=== PATIENT | female | born 1970 | race Caucasian/White ===

== ENCOUNTER 2018-03-16 17:36 | Inpatient (IN) ==
--- NOTE | 2018-03-16 18:58 | Emergency Department Note ---
START Narrative - START START: I have reviewed nurse's notes and vital signs. 47-year-old female with self reported alcohol abuse presents with suicidal ideation. She mentioned she has been a drinker since she was 16yo. She does mention she goes through withdrawal symptoms. Her last drink was approximately 12 hours ago. She mentions she drinks a bottle of vodka every day. She mentions she has been diagnosed with anxiety and/or depression in the past but has not seen anyone or taken any medications lately. She is accompanied by her parents. Her father mentions that patient recently had a DUI conviction last fall, and has recently missed court appearances and has a warrant out for her. Otherwise patient mentions several life stressors but declines to provide specifics. This is a start note. Patient was initially seen in fast track area per request of nursing. I will put a medical clearance evaluation and patient will likely be placed in a medical bed where her care will be transferred over to the day shift attending, Dr. Pineda, with whom I discussed patient. Please see her documentation for further details.
[2018-03-16 19:17] LABS: Bilirubin,Urine Negative (Negative); Blood,Urine Small (Negative); Clarity,Urine Clear (Clear); Color,Urine Yellow (Yellow); Glucose,Urine (UA) Normal (Normal); Ketones,Urine Trace mg/dL (Negative); Leukocyte Esterase,Urine Negative (Negative); Nitrite,Urine Negative (Negative); PH,Urine 6.5 pH Units (5.0-8.0); Protein,Urine 30 mg/dL (Neg-Trace); Specific Gravity,Urine 1.013 (1.010-1.025); Urobilinogen,Urine Normal (Normal)
[2018-03-16 19:24] LABS: Bacteria,Urine None Seen per hpf (None-Few); Hyaline Casts,Urine None Seen per lpf (None-Few); RBC,Urine 0-3 per hpf (0-3); Squamous Epithelial Cell,Urine Moderate per lpf (None-Few); WBC,Urine 0-3 per hpf (0-3)
[2018-03-16 19:26] LABS: Amphetamine Screen,Urine Negative ng/mL (Cutoff=1000); Barbiturate Screen,Urine Negative ng/mL (Cutoff=200); Benzodiazepines Screen,Urine Negative ng/mL (Cutoff=200); Cannabinoid Screen,Urine Negative ng/mL (Cutoff = 50); Cocaine Screen,Urine Negative ng/mL (Cutoff= 300); Opiate Screen,Urine Negative ng/mL (Cutoff=300); Phencyclidine Screen,Urine Negative ng/mL (Cutoff=25)
[2018-03-16 19:28] LABS: Basophils % 0.8 %; Eosinophils % 0.6 %; Hematocrit 44.5 % (35.3-44.9); Hemoglobin 14.7 g/dL (11.5-15.4); Immature Granulocytes % 0.4 % (0-4); Lymphocytes # 1.5 K/mcL (0.6-4.6); Lymphocytes % 29.2 %; Mean Corpuscular Hemoglobin 27.8 pg (28.0-33.3); Mean Corpuscular Volume 84.1 fL (83.0-100.0); Mean Platelet Volume 9.3 fL (9.4-12.4); Monocytes # 0.4 K/mcL (0.0-1.3); Monocytes % 7.1 %; Neutrophils # 3.2 K/mcL (1.6-8.9); Platelet Count 211 K/mcL (140-400); Red Blood Count 5.29 M/mcL (3.82-4.97); Red Cell Distribution Width 15.7 % (11.5-14.5); Segmented Neutrophils % 61.9 %
[2018-03-16] MEDS ORDERED: *HR* LORazepam 1 MG TABLET PO ONE (19:33)
[2018-03-16 19:39] LABS: Acetaminophen < 10 mcg/mL (10-20); BUN/Creatinine Ratio 8 (6-26); Blood Urea Nitrogen 5 mg/dL (6-20); Calcium 9.1 mg/dL (8.6-10.3); Carbon Dioxide 21 mEq/L (23-29); Chloride 101 mEq/L (98-107); Ethanol 430 mg/dL (Less than 10); Glucose 102 mg/dL (70-105); Osmolality,Calculated 287 (280-300); Potassium 3.7 mEq/L (3.5-5.1); Salicylate < 2.5 mg/dL (15.0-30.0); Sodium 140 mEq/L (136-145); eGFR For African Americans > 60 (> 60); eGFR For Non-African Americans > 60 (> 60)
--- NOTE | 2018-03-16 20:53 | Emergency Department Note ---
Disposition Clinical Impression: Suicidal ideation Disposition: Still a Patient Condition: Good Referrals: NONE,PCP [Primary Care Provider] - Forms: ED Satisfaction Letter Time of Disposition: 21:14 Psych HPI - General Chief Complaint: ED Psychiatric Symptoms Stated Complaint: SI Time Seen by Provider: 03/16/18 18:49 Source: patient, family Nursing Notes Reviewed: Yes Vital Signs Reviewed: Yes - History of Present Illness HPI Narrative: Patient sitting suicidal ideation. No plan. Also requesting withdrawal from alcohol. States she drinks 700 mL of vodka daily. - Related Data Home Medications Medication Instructions Recorded Confirmed LORazepam [Ativan] 1 mg PO DAILY 08/03/17 08/03/17 Zolpidem [Ambien] 10 mg PO DAILY 08/03/17 08/03/17 Previous Rx's Medication Instructions Recorded Azithromycin [Zithromax] 0 tab PO DAILY #6 tablet 08/03/17 Benzonatate [Tessalon] 200 mg PO TID #20 capsule 08/03/17 Allergies Allergy/AdvReac Type Severity Reaction Status Date / Time No Known Allergies Allergy Verified 08/03/17 10:40 All systems ED: reviewed and negative except as stated. Constitutional: Denies: fever, chills Cardiovascular: Denies: chest pain Respiratory: Denies: cough, dyspnea Gastrointestinal: Denies: abdominal pain, nausea, vomiting, diarrhea Psychiatric: Reports: anxiety, suicidal thoughts. Denies: auditory hallucinations, visual hallucinations Past Medical History - Past Medical History Attestation: Yes The following information was validated with the patient. 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 Absent: scleral icterus - ENT ENT exam: normal exam, normal oropharynx, mucous membranes moist - Neck Neck exam: Present: normal inspection, full ROM, trachea midline - Chest Chest inspection: Present: normal inspection. Absent: symmetric chest wall rise - Respiratory Respiratory exam: Present: normal lung sounds bilaterally. Absent: respiratory distress, accessory muscle use - Cardiovascular Cardiovascular exam: Present: regular rate, normal rhythm, normal heart sounds - Abdominal Exam Abdominal exam: Present: soft, Non-Tender. Absent: organomegaly - Extremities Exam Extremities exam: Present: normal inspection, full ROM, normal capillary refill. Absent: tenderness, pedal edema - Back Exam Back exam: Present: normal inspection, full ROM. Absent: tenderness - Neurological Exam Neurological exam: Present: alert, oriented X3 - Psychiatric Psychiatric exam: Present: normal affect, normal mood - Skin Skin exam: Present: warm, dry, intact, normal color Course Course Narrative: Female patient with a history of alcoholism but drinks about 750 mL of vodka daily presenting to the emergency department with suicidal ideations. She states she does not have a plan. She states she does not feel suicidal while sitting here in the hospital. She is not homicidal. She denies any auditory or visual hallucinations. She is requesting detox from alcohol. She has no shortness of breath or chest pain. She denies any abdominal pain. She does report some shaking. She has detoxed previously with no history of seizures. We will get basic lab workup on admit patient for alcohol detox. She states she does have a history of depression and has taken medication for this previously however is not on any at this time. We we will do a basic lab workup. We will pink slip the patient for her suicidal ideation a negative Ia evaluation. Vital Signs Temperature 98.4 F 03/16/18 18:35 Pulse Rate 120 03/16/18 18:35 Respiratory Rate 18 03/16/18 18:35 Blood Pressure 162/87 03/16/18 18:35 O2 Sat by Pulse Oximetry 97 03/16/18 18:35 Temperature 98.4 F 03/16/18 18:35 Pulse Rate 120 03/16/18 18:35 Respiratory Rate 18 03/16/18 18:35 Blood Pressure 162/87 03/16/18 18:35 O2 Sat by Pulse Oximetry 97 03/16/18 18:35 Oxygen Delivery Oxygen Delivery Room Air Psych - Lab Data Result diagrams: 03/16/18 19:13 03/16/18 19:13 Lab Results 03/16/18 03/16/18 03/16/18 Range/Units 19:10 19:10 19:10 WBC (4.3-11.1) K/mcL RBC (3.82-4.97) M/mcL Hgb (11.5-15.4) g/dL Hct (35.3-44.9) % MCV (83.0-100.0) fL MCH (28.0-33.3) pg MCHC (31.6-35.5) g/dL RDW (11.5-14.5) % Plt Count (140-400) K/mcL MPV (9.4-12.4) fL Immature Gran % (0-4) % Seg Neutrophils % % Lymphocytes % % Monocytes % % Eosinophils % % Basophils % % Neutrophils # (1.6-8.9) K/mcL Lymphocytes # (0.6-4.6) K/mcL Monocytes # (0.0-1.3) K/mcL Eosinophils # (0.0-0.6) K/mcL Basophils # (0.0-0.2) K/mcL Sodium (136-145) mEq/L Potassium (3.5-5.1) mEq/L Chloride (98-107) mEq/L Carbon Dioxide (23-29) mEq/L BUN (6-20) mg/dL Creatinine (0.60-1.20) mg/dL Est GFR ( Amer) (> 60) Est GFR (Non-Af Amer) (> 60) BUN/Creatinine Ratio (6-26) Glucose (70-105) mg/dL Calculated Osmolality (280-300) Calcium (8.6-10.3) mg/dL Urine Color Yellow (Yellow) Urine Clarity Clear (Clear) Urine pH 6.5 (5.0-8.0) pH Units Ur Specific [place] 1.013 (1.010-1.025) Urine Protein 30 H (Neg-Trace) mg/dL Urine Glucose (UA) Normal (Normal) mg/dL Urine Ketones Trace H (Negative) mg/dL Urine Blood Small H (Negative) Urine Nitrite Negative (Negative) Urine Bilirubin Negative (Negative) Urine Urobilinogen Normal (Normal) mg/dL Ur Leukocyte Esterase Negative (Negative) Urine Microscopic RBC 0-3 (0-3) per hpf Urine Microscopic WBC 0-3 (0-3) per hpf Ur Squamous Epith Cells Moderate H (None-Few) per lpf Urine Bacteria None Seen (None-Few) per hpf Hyaline Casts None Seen (None-Few) per lpf Urine Test Negative (Negative) Salicylates (15.0-30.0) mg/dL Urine Opiates Screen Negative (Clksrf=344) ng/mL Acetaminophen (10-20) mcg/mL Ur Barbiturates Screen Negative (Imizgp=002) ng/mL Ur Phencyclidine Scrn Negative (Cutoff=25) ng/mL Ur Amphetamines Screen Negative (Qltsxe=6369) ng/mL U Benzodiazepines Scrn Negative (Zhqfbd=452) ng/mL Urine Cocaine Screen Negative (Cutoff= 300) ng/mL U Marijuana (THC) Screen Negative (Cutoff = 50) ng/mL Ethyl Alcohol (Less than 10) mg/dL 03/16/18 03/16/18 Range/Units 19:13 19:13 WBC 5.2 (4.3-11.1) K/mcL RBC 5.29 H (3.82-4.97) M/mcL Hgb 14.7 (11.5-15.4) g/dL Hct 44.5 (35.3-44.9) % MCV 84.1 (83.0-100.0) fL MCH 27.8 L (28.0-33.3) pg MCHC 33.0 (31.6-35.5) g/dL RDW 15.7 H (11.5-14.5) % Plt Count 211 (140-400) K/mcL MPV 9.3 L (9.4-12.4) fL Immature Gran % 0.4 (0-4) % Seg Neutrophils % 61.9 % Lymphocytes % 29.2 % Monocytes % 7.1 % Eosinophils % 0.6 % Basophils % 0.8 % Neutrophils # 3.2 (1.6-8.9) K/mcL Lymphocytes # 1.5 (0.6-4.6) K/mcL Monocytes # 0.4 (0.0-1.3) K/mcL Eosinophils # 0.0 (0.0-0.6) K/mcL Basophils # 0.0 (0.0-0.2) K/mcL Sodium 140 (136-145) mEq/L Potassium 3.7 (3.5-5.1) mEq/L Chloride 101 (98-107) mEq/L Carbon Dioxide 21 L (23-29) mEq/L BUN 5 L (6-20) mg/dL Creatinine 0.61 (0.60-1.20) mg/dL Est GFR ( Amer) > 60 (> 60) Est GFR (Non-Af Amer) > 60 (> 60) BUN/Creatinine Ratio 8 (6-26) Glucose 102 (70-105) mg/dL Calculated Osmolality 287 (280-300) Calcium 9.1 (8.6-10.3) mg/dL Urine Color (Yellow) Urine Clarity (Clear) Urine pH (5.0-8.0) pH Units Ur Specific [place] (1.010-1.025) Urine Protein (Neg-Trace) mg/dL Urine Glucose (UA) (Normal) mg/dL Urine Ketones (Negative) mg/dL Urine Blood (Negative) Urine Nitrite (Negative) Urine Bilirubin (Negative) Urine Urobilinogen (Normal) mg/dL Ur Leukocyte Esterase (Negative) Urine Microscopic RBC (0-3) per hpf Urine Microscopic WBC (0-3) per hpf Ur Squamous Epith Cells (None-Few) per lpf Urine Bacteria (None-Few) per hpf Hyaline Casts (None-Few) per lpf Urine Test (Negative) Salicylates < 2.5 L (15.0-30.0) mg/dL Urine Opiates Screen (Zlreha=777) ng/mL Acetaminophen < 10 L (10-20) mcg/mL Ur Barbiturates Screen (Phvgrv=407) ng/mL Ur Phencyclidine Scrn (Cutoff=25) ng/mL Ur Amphetamines Screen (Eyfapo=4812) ng/mL U Benzodiazepines Scrn (Yixubg=004) ng/mL Urine Cocaine Screen (Cutoff= 300) ng/mL U Marijuana (THC) Screen (Cutoff = 50) ng/mL Ethyl Alcohol 430 H (Less than 10) mg/dL Psychiatric Medical Clearance - Medical Clearance Checklist Medical History: Suicidal ideation (Acute) Bronchitis (Inactive) No Social History Section defined Current Vitals: Last Vital Signs Temp 98.4 F 03/16/18 18:35 Pulse 120 03/16/18 18:35 Resp 18 03/16/18 18:35 BP 162/87 03/16/18 18:35 Pulse Ox 97 03/16/18 18:35 Psychiatric Lab Panel: Drug Levels and Toxicity 03/16/18 03/16/18 19:10 19:13 Urine Opiates Screen Negative Acetaminophen < 10 L Ur Barbiturates Screen Negative Ur Phencyclidine Scrn Negative Ur Amphetamines Screen Negative U Benzodiazepines Scrn Negative Urine Cocaine Screen Negative U Marijuana (THC) Screen Negative Ethyl Alcohol 430 H Abnormal Labs: Abnormal lab results RBC 5.29 M/mcL (3.82-4.97) H 03/16/18 19:13 MCH 27.8 pg (28.0-33.3) L 03/16/18 19:13 RDW 15.7 % (11.5-14.5) H 03/16/18 19:13 MPV 9.3 fL (9.4-12.4) L 03/16/18 19:13 Carbon Dioxide 21 mEq/L (23-29) L 03/16/18 19:13 BUN 5 mg/dL (6-20) L 03/16/18 19:13 Urine Protein 30 mg/dL (Neg-Trace) H 03/16/18 19:10 Urine Ketones Trace mg/dL (Negative) H 03/16/18 19:10 Urine Blood Small (Negative) H 03/16/18 19:10 Ur Squamous Epith Cells Moderate per lpf (None-Few) H 03/16/18 19:10 Salicylates < 2.5 mg/dL (15.0-30.0) L 03/16/18 19:13 Acetaminophen < 10 mcg/mL (10-20) L 03/16/18 19:13 Ethyl Alcohol 430 mg/dL (Less than 10) H 03/16/18 19:13 S.B.A.R. - S.B.A.R. Background: Presenting Complaint (Suicidal ideation, patient is pink slipped. Pending Ia evaluation.) Assessment: Exam Concerns (Alcohol withdrawal, has been given by mouth Ativan.)
[2018-03-16] MEDS ORDERED: *HR* LORazepam 2 MG/ML VIAL IVP ONE (21:37)
--- NOTE | 2018-03-16 21:37 | Emergency Department Note ---
Disposition Clinical Impression: Suicidal ideation Disposition: Still a Patient Condition: Good Referrals: NONE,PCP [Primary Care Provider] - Forms: ED Satisfaction Letter General Adult HPI - General Chief complaint: ED Psychiatric Symptoms Stated complaint: SI Time Seen by Provider: 03/16/18 18:49 Source: patient, family Limitations: no limitations - History of Present Illness Pain Scale: 0 - Related Data Home Medications Medication Instructions Recorded Confirmed LORazepam [Ativan] 1 mg PO DAILY 08/03/17 08/03/17 Zolpidem [Ambien] 10 mg PO DAILY 08/03/17 08/03/17 Previous Rx's Medication Instructions Recorded Azithromycin [Zithromax] 0 tab PO DAILY #6 tablet 08/03/17 Benzonatate [Tessalon] 200 mg PO TID #20 capsule 08/03/17 Allergies Allergy/AdvReac Type Severity Reaction Status Date / Time No Known Allergies Allergy Verified 08/03/17 10:40 Constitutional: Denies: fever, chills Cardiovascular: Denies: chest pain Respiratory: Denies: cough, dyspnea Gastrointestinal: Denies: abdominal pain, nausea, vomiting, diarrhea Psychiatric: Reports: anxiety, suicidal thoughts. 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 - Social History Smoking Status: Never smoker Smokeless Tobacco Status: No Alcohol use: Reports: heavy Drug use: Reports: none Physical Exam - General Limitations: no limitations General appearance: alert, in no apparent distress, anxious Course Vital Signs Temperature 98.4 F 03/16/18 18:35 Pulse Rate 120 03/16/18 18:35 Respiratory Rate 18 03/16/18 18:35 Blood Pressure 162/87 03/16/18 18:35 O2 Sat by Pulse Oximetry 97 03/16/18 18:35 Temperature 98.4 F 03/16/18 18:35 Pulse Rate 120 03/16/18 18:35 Respiratory Rate 18 03/16/18 18:35 Blood Pressure 162/87 03/16/18 18:35 O2 Sat by Pulse Oximetry 97 03/16/18 18:35 Oxygen Delivery Oxygen Delivery Room Air Medical Decision Making - Lab Data Result diagrams: 03/16/18 19:13 03/16/18 19:13 Lab Results 03/16/18 03/16/1803/16/18 Range/Units 19:10 19:10 19:10 WBC (4.3-11.1) K/mcL RBC (3.82-4.97) M/mcL Hgb (11.5-15.4) g/dL Hct (35.3-44.9) % MCV (83.0-100.0) fL MCH (28.0-33.3) pg MCHC (31.6-35.5) g/dL RDW (11.5-14.5) % Plt Count (140-400) K/mcL MPV (9.4-12.4) fL Immature Gran % (0-4) % Seg Neutrophils % % Lymphocytes % % Monocytes % % Eosinophils % % Basophils % % Neutrophils # (1.6-8.9) K/mcL Lymphocytes # (0.6-4.6) K/mcL Monocytes # (0.0-1.3) K/mcL Eosinophils # (0.0-0.6) K/mcL Basophils # (0.0-0.2) K/mcL Sodium (136-145) mEq/L Potassium (3.5-5.1) mEq/L Chloride (98-107) mEq/L Carbon Dioxide (23-29) mEq/L BUN (6-20) mg/dL Creatinine (0.60-1.20) mg/dL Est GFR ( Amer) (> 60) Est GFR (Non-Af Amer) (> 60) BUN/Creatinine Ratio (6-26) Glucose (70-105) mg/dL Calculated Osmolality (280-300) Calcium (8.6-10.3) mg/dL Urine Color Yellow (Yellow) Urine Clarity Clear (Clear) Urine pH 6.5 (5.0-8.0) pH Units Ur Specific [place] 1.013 (1.010-1.025) Urine Protein 30 H (Neg-Trace) mg/dL Urine Glucose (UA) Normal (Normal) mg/dL Urine Ketones Trace H (Negative) mg/dL Urine Blood Small H (Negative) Urine Nitrite Negative (Negative) Urine Bilirubin Negative (Negative) Urine Urobilinogen Normal (Normal) mg/dL Ur Leukocyte Esterase Negative (Negative) Urine Microscopic RBC 0-3 (0-3) per hpf Urine Microscopic WBC 0-3 (0-3) per hpf Ur Squamous Epith Cells Moderate H (None-Few) per lpf Urine Bacteria None Seen (None-Few) per hpf Hyaline Casts None Seen (None-Few) per lpf Urine Test Negative (Negative) Salicylates (15.0-30.0) mg/dL Urine Opiates Screen Negative (Eclsvb=012) ng/mL Acetaminophen (10-20) mcg/mL Ur Barbiturates Screen Negative (Vjgynb=733) ng/mL Ur Phencyclidine Scrn Negative (Cutoff=25) ng/mL Ur Amphetamines Screen Negative (Xdjlwk=0092) ng/mL U Benzodiazepines Scrn Negative (Hqnuxe=899) ng/mL Urine Cocaine Screen Negative (Cutoff= 300) ng/mL U Marijuana (THC) Screen Negative (Cutoff = 50) ng/mL Ethyl Alcohol (Less than 10) mg/dL 03/16/18 03/16/18 Range/Units 19:13 19:13 WBC 5.2 (4.3-11.1) K/mcL RBC 5.29 H (3.82-4.97) M/mcL Hgb 14.7 (11.5-15.4) g/dL Hct 44.5 (35.3-44.9) % MCV 84.1 (83.0-100.0) fL MCH 27.8 L (28.0-33.3) pg MCHC 33.0 (31.6-35.5) g/dL RDW 15.7 H (11.5-14.5) % Plt Count 211 (140-400) K/mcL MPV 9.3 L (9.4-12.4) fL Immature Gran % 0.4 (0-4) % Seg Neutrophils % 61.9 % Lymphocytes % 29.2 % Monocytes % 7.1 % Eosinophils % 0.6 % Basophils % 0.8 % Neutrophils # 3.2 (1.6-8.9) K/mcL Lymphocytes # 1.5 (0.6-4.6) K/mcL Monocytes # 0.4 (0.0-1.3) K/mcL Eosinophils # 0.0 (0.0-0.6) K/mcL Basophils # 0.0 (0.0-0.2) K/mcL Sodium 140 (136-145) mEq/L Potassium 3.7 (3.5-5.1) mEq/L Chloride 101 (98-107) mEq/L Carbon Dioxide 21 L (23-29) mEq/L BUN 5 L (6-20) mg/dL Creatinine 0.61 (0.60-1.20) mg/dL Est GFR ( Amer) > 60 (> 60) Est GFR (Non-Af Amer) > 60 (> 60) BUN/Creatinine Ratio 8 (6-26) Glucose 102 (70-105) mg/dL Calculated Osmolality 287 (280-300) Calcium 9.1 (8.6-10.3) mg/dL Urine Color (Yellow) Urine Clarity (Clear) Urine pH (5.0-8.0) pH Units Ur Specific [place] (1.010-1.025) Urine Protein (Neg-Trace) mg/dL Urine Glucose (UA) (Normal) mg/dL Urine Ketones (Negative) mg/dL Urine Blood (Negative) Urine Nitrite (Negative) Urine Bilirubin (Negative) Urine Urobilinogen (Normal) mg/dL Ur Leukocyte Esterase (Negative) Urine Microscopic RBC (0-3) per hpf Urine Microscopic WBC (0-3) per hpf Ur Squamous Epith Cells (None-Few) per lpf Urine Bacteria (None-Few) per hpf Hyaline Casts (None-Few) per lpf Urine Test (Negative) Salicylates < 2.5 L (15.0-30.0) mg/dL Urine Opiates Screen (Pxdqek=093) ng/mL Acetaminophen < 10 L (10-20) mcg/mL Ur Barbiturates Screen (Ezkbxi=822) ng/mL Ur Phencyclidine Scrn (Cutoff=25) ng/mL Ur Amphetamines Screen (Olhpnh=0988) ng/mL U Benzodiazepines Scrn (Peebsr=844) ng/mL Urine Cocaine Screen (Cutoff= 300) ng/mL U Marijuana (THC) Screen (Cutoff = 50) ng/mL Ethyl Alcohol 430 H (Less than 10) mg/dL Attestation Statement - Attestation Attestation: I examined this patient and my medical decision-making was reviewed with the Resident Physician. I agree with the documented findings, disposition and treatment plan as described except to the extent set forth below. Patient presents to the ED with suicidal thoughts. Patient states she is an alcoholic and drinks 750 and also vodka daily. Thoughts of harming herself with the plan. Patient denies any history of suicide attempts. On examination she is tearful. Awake alert oriented moving all extremities. Abdomen soft lungs clear. Plan. Medical clearance. [place] slip on chart. Patient was suicidal thoughts however unstable for 1A as she starting to go and alcoholic jaw. Patient states she wants to quit drinking. She is given Ativan. Will be admitted to medicine for detox.
[2018-03-16] MEDS ORDERED: Naloxone 0.4 MG/ML INJ IVP PRN (23:08)
[2018-03-16] MEDS ORDERED: Acetaminophen 325 MG TABLET PO PRN (23:08)
[2018-03-16] MEDS ORDERED: *HR* Promethazine 25 MG/ML VIAL IVP PRN (23:11)
[2018-03-16] MEDS ORDERED: *HR* LORazepam 2 MG/ML VIAL IVP PRN ×3 (23:11)
--- NOTE | 2018-03-16 23:17 | Internal Med History&Physical ---
Date of Encounter: 03/16/18 Time of Encounter: 22:30 Internal Medicine - H&P: HPI Chief complaint: Suicidal idea Admitted From: Home Plans for Post Hospital Care: Transfer Psych Facility History of present illness: Ms. Walker is a 47 year old female present to ER for suicidal idea. Past medical history is significant for depression. Patient said she is depressed recently. She has idea of he will herself, without any attempt. Patient denies homicide idea. Patient also compliant of anxious, palpitation, shaking, and diaphoresis. Patient denies chest pain, shortness of breath, abdominal pain, nausea, or vomiting. Patient has no fever. Patient is alcoholic with daily alcohol use, her last drink is this morning. Patient was admitted to medical floor for concern of alcohol withdrawal. Past Med Surg Social Fam HX - Past Medical History Medical history: no medical history Psychiatric history: anxiety, depression, previous psychiatric hospitalization - Past Surgical History Surgical History: no surgical history - Social History Smoking Status: Never smoker Smokeless Tobacco Status: No Alcohol use: heavy Drug use: none - Family History Mother History Unknown: Yes Internal Medicine - H&P: Meds No Known Home Drugs 03/16/18 [History] 3 Allergy/AdvReac Type Severity Reaction Status Date / Time No Known Allergies Allergy Verified 03/16/18 21:42 All Systems PM: A 10-system review of systems was performed and is negative for pertinent findings except as documented above in the HPI. - Constitutional Vitals: Temp Pulse Resp BP Pulse Ox 97.8 F 113 14 146/90 98 03/16/18 23:04 03/16/18 23:04 03/16/18 23:04 03/16/18 23:04 03/16/18 23:04 General appearance: Present: A&O X 3, no acute distress, answers questions appropriately - Head Head exam: Present: atraumatic, normocephalic - Eye Eye exam: Present: PERRL, conjuntiva pink, sclera anicteric Pupils: Present: PERRL - Neck Neck exam general surgery: Present: supple, trachea midline. Absent: lymphadenopathy - Respiratory Respiratory exam: Present: CTAB. Absent: accessory muscle use, rales, rhonchi, wheezes - Cardiovascular Cardiovascular exam: Present: RRR, +S1, +S2, tachycardia. Absent: diastolic murmur, gallop, rubs, systolic murmur - GI/Abdominal GI/Abdominal exam: Present: normal bowel sounds, soft, no peritoneal signs. Absent: distended, tenderness - Extremities Exam Extremities exam: Present: warm, radial pulses palpable and symmetrical. Absent : calf tenderness, cyanotic, pedal edema - Neurological Exam Neurological exam: Present: CN II-XII intact, oriented X3, no focal deficits. Absent: pronater drift, facial droop, speech deficit - Skin Skin exam: Present: dry, intact Internal Med - H&P Results - Labs CBC & Chem 7: 03/16/18 19:13 03/16/18 19:13 - Assessment and plan (1) Alcohol withdrawal Current Visit: Yes Status: Acute Assessment and plan: Patient has tachycardia, shaking, and diaphoresis. Consider early signs of alcohol withdrawal. - Place patient on continuous cardiac monitoring - CIWA protocol - Librium 25 mg po tid. - Banana bag x 3 - Social work consult Qualifiers: Complication of substance-induced condition: uncomplicated Qualified Code(s ): F10.230 - Alcohol dependence with withdrawal, uncomplicated (2) Alcoholism Current Visit: Yes Status: Acute Assessment and plan: Management as above (3) Depression Current Visit: Yes Status: Acute Assessment and plan: We will consult psychiatry for further management Qualifiers: Depression Type: unspecified Qualified Code(s): F32.9 - Major depressive disorder, single episode, unspecified (4) Anxiety Current Visit: Yes Status: Acute Assessment and plan: We will consult psychiatry (5) DVT prophylaxis Current Visit: Yes Status: Acute Assessment and plan: Heparin subcutaneously (6) Suicidal ideation Current Visit: Yes Status: Acute Assessment and plan: Will place patient on one-to-one sitter. Will consult psychiatry for further management. Suicide precaution. - Time Spent With Patient Total time spent is greater than 50% in coordination of care (as documented) at patient's floor/unit and/or counseling patient: 40 minutes Greater than 35 minutes
[2018-03-17] MEDS: *HR* Heparin 5,000 UNIT/ML VIAL SQ SCH ×2 (05:26→16:33)
[2018-03-17 06:10] LABS: Basophils % 0.9 %; Eosinophils # 0.1 K/mcL (0.0-0.6); Eosinophils % 1.4 %; Hematocrit 38.1 % (35.3-44.9); Immature Granulocytes % 0.5 % (0-4); Lymphocytes # 1.3 K/mcL (0.6-4.6); Lymphocytes % 30.8 %; Mean Corpuscular HGB Conc 33.9 g/dL (31.6-35.5); Mean Corpuscular Hemoglobin 28.1 pg (28.0-33.3); Mean Platelet Volume 9.9 fL (9.4-12.4); Monocytes # 0.3 K/mcL (0.0-1.3); Monocytes % 7.3 %; Neutrophils # 2.5 K/mcL (1.6-8.9); Platelet Count 161 K/mcL (140-400); Red Blood Count 4.59 M/mcL (3.82-4.97); Red Cell Distribution Width 15.9 % (11.5-14.5); Segmented Neutrophils % 59.1 %
[2018-03-17 06:17] LABS: Hemoglobin 12.9 g/dL (11.5-15.4)
[2018-03-17 06:31] LABS: BUN/Creatinine Ratio 10 (6-26); Blood Urea Nitrogen 6 mg/dL (6-20); Calcium 8.4 mg/dL (8.6-10.3); Carbon Dioxide 23 mEq/L (23-29); Chloride 100 mEq/L (98-107); Glucose 74 mg/dL (70-105); Magnesium 1.8 mg/dL (1.6-2.6); Osmolality,Calculated 278 (280-300); Potassium 3.2 mEq/L (3.5-5.1); Sodium 136 mEq/L (136-145); eGFR For African Americans > 60 (> 60); eGFR For Non-African Americans > 60 (> 60)
--- NOTE | 2018-03-17 14:22 | Internal Med Progress Note ---
Date of Encounter: 03/17/18 Time of Encounter: 14:19 - Assessment and plan (1) Alcohol withdrawal Current Visit: Yes Status: Acute Assessment and plan: - History of long time alcoholism. Has been tried outpatient rehabilitation. She is eager to be sober again. I will ask the social scientist to give patient information about outpatient rehabilitation. - Continue CIWA, continue Ativan when necessary, continue Librium by mouth. - Continue telemetry monitoring, thiamine and folate. Qualifiers: Complication of substance-induced condition: uncomplicated Qualified Code(s ): F10.230 - Alcohol dependence with withdrawal, uncomplicated (2) Suicidal ideation Current Visit: Yes Status: Acute Assessment and plan: - Continue sitter, psychiatrist consult. (3) Alcoholism Current Visit: Yes Status: Acute Assessment and plan: - As above. (4) Depression Current Visit: Yes Status: Acute Assessment and plan: - History of depression, not on any medication currently. - Psych consult. Qualifiers: Depression Type: unspecified Qualified Code(s): F32.9 - Major depressive disorder, single episode, unspecified (5) Anxiety Current Visit: Yes Status: Acute Assessment and plan: -Pending psych consult. (6) DVT prophylaxis Current Visit: Yes Status: Acute - Time Spent With Patient Total time spent is greater than 50% in coordination of care (as documented) at patient's floor/unit and/or counseling patient: 25 - 35 minutes - Subjective Interval history: Patient seen in the room, she has a sitter. She reported she had a suicidal ideation before she came to the hospital, but denies any suicidal plans right now. She is reported she had depression and anxiety in the past, but currently she does not take any medications for that. She denies hallucination. - Constitutional Vitals: Temp Pulse Resp BP Pulse Ox 98.1 F 95 18 139/87 94 03/17/18 11:41 03/17/18 11:41 03/17/18 11:41 03/17/18 11:41 03/17/18 11:41 General appearance: Present: A&O X 3, no acute distress, answers questions appropriately Exam: PHYSICAL EXAMINATION: GENERAL APPEARANCE: The patient is alert, oriented and in no acute distress. HEENT: Head is normocephalic. The sinuses are nontender. Pupils are equal and reactive. The nares are patent. Oropharynx clear without lesions. NECK: Supple without lymphadenopathy. HEART: Regular rate and rhythm. LUNGS: No crackles or wheezes are heard. ABDOMEN: Soft, nontender, nondistended with good bowel sounds heard. Inguinal area is normal. EXTREMITIES: Without cyanosis, clubbing or edema. NEUROLOGICAL: Gross nonfocal. SKIN: Warm and dry without any rash. Internal Medicine: Result - Labs CBC & Chem 7: 03/17/18 05:24 03/17/18 05:24 Labs: Short CBC 03/17/18 Range/Units 05:24 WBC 4.3 (4.3-11.1) K/mcL Hgb 12.9 D (11.5-15.4) g/dL Hct 38.1 (35.3-44.9) % Plt Count 161 (140-400) K/mcL Neutrophils # 2.5 (1.6-8.9) K/mcL BMP 03/17/18 05:24 Sodium 136 Potassium 3.2 L Chloride 100 Carbon Dioxide 23 BUN 6 Creatinine 0.61 Glucose 74 Calcium 8.4 L Consult Discharge Plan - Plan Referrals: NONE,PCP [Primary Care Provider] -
--- NOTE | 2018-03-17 16:39 | Consult Note ---
Date of Encounter: 03/17/18 Time of Encounter: 15:45 Assessment & Recommendation (1) Other specified depressive episodes Current visit: Yes Status: Acute (2) Alcohol withdrawal Current visit: Yes Status: Acute Qualifiers: Complication of substance-induced condition: uncomplicated Qualified Code(s ): F10.230 - Alcohol dependence with withdrawal, uncomplicated (3) Alcoholism Current visit: Yes Status: Acute History of Present Illness Requesting Physician: Loli Carter CNP Reason for consult: SI and sobriety History of present illness: Ms. Walker is a 47 year old female The patient met with me. The patient is a 47-year-old female. She lives alone. Her primary care doctor is Dr. Gooden The patient denies suicidal ideation. The patient has had ongoing problems with alcohol and in October 2017 was charged with a DUI. She also told her car and her license was taken away. The patient has had increasing difficulty and not going to her job she is missed some days working. Her parents brought her in for treatment. The patient began drinking at age 16 and in the past 40 years's had significant problems in terms of relationships but no significant problem with legal problems or liver problems. Anxiety and depression have been diagnosed or treated in the past but the patient reports adverse reactions to antidepressants make her feel like a zombie. Sometimes she has thought about suicidal ideation but does not now. She does not think that she needs further treatment. In the past the patient has never been tried on Campral naltrexone, but has been on Antabuse 1 time. The patient reported no suicide attempts. The past medical history is essentially noncontributory. Patient is interested in obtaining sobriety by outpatient treatment. She has a diet assistant to handle the DUI and court related charges. She could contact her human resources about her absence from work as alcoholic use disorder is covered by the Americans With Disabilities Act. Patient is willing to begin a trial of naltrexone. Oral naltrexone 25 mg every afternoon could be initiated increasing to 50 mg. I explained to her that she needs to continue with [employer] in addition to other treatment plans. I do not think she need psychiatric hospitalization at this time I do not think she needs a sitter at this time. I would recommend she see a psychiatrist such as Dr. Jaz Felix of [facility]. Her depression may be best monitored and treated without antidepressants. Individual counseling could be added in the context of substance abuse treatment. The [facility] has [facility] but had left the program and lost her sobriety. The patient could attend an AA meeting there is 1 near her house. She could obtain a sponsor. CC: Loli Carter CNP Past Med Surg Social Fam HX - Past Medical History Medical history: no medical history - Past Surgical History Surgical History: no surgical history - Social History Smoking Status: Never smoker Smokeless Tobacco Status: No Alcohol use: heavy Drug use: none - Family History Mother History Unknown: Yes Medications & Allergies No Known Home Drugs 03/16/18 [History] 3 Allergy/AdvReac Type Severity Reaction Status Date / Time No Known Allergies Allergy Verified 03/16/18 21:42 Psychiatry Exam - Constitutional Vitals: Temp Pulse Resp BP Pulse Ox 98.1 F 95 18 139/87 94 03/17/18 11:41 03/17/18 11:41 03/17/18 11:41 03/17/18 11:41 03/17/18 11:41 General appearance: age & developmentally appropriate, well-groomed, well- nourished - Musculoskeletal Gait: normal Station: relaxed Strength & Tone: normal for patient - Psychiatric Patient Orientation: Yes Person, Yes Time, Yes Place Level of alertness: Alert Behavior: calm, cooperative, tearful Psychomotor activity: Normal Eye Contact: Maintains Eye Contact Mood Description: Euthymic/stable, Depressed Affect description: congruent with mood, full range Speech Volume: Normal Speech pattern: normal rate, normal rhythm, normal tone, fluent, spontaneous Language & Vocabulary: consistent with education Thought Process: Linear, Goal Oriented Thought Content: No Suicidal ideation, No Homicidal ideation, No Overt delusions Perceptual Disturbances: No Auditory hallucinations, No Visual hallucinations Attention Span Ability: Capable of Focused Attention Memory Description: Grossly Intact Patient Reliability: Reliable Historian Fund of knowledge: Yes abstraction ability, Yes aware of current events Intelligence Estimate: Average Judgment: Fair Insight: Partial Results - Labs Labs: Laboratory Last Values WBC 4.3 K/mcL (4.3-11.1) 03/17/18 05:24 RBC 4.59 M/mcL (3.82-4.97) 03/17/18 05:24 Hgb 12.9 g/dL (11.5-15.4) D 03/17/18 05:24 Hct 38.1 % (35.3-44.9) 03/17/18 05:24 MCV 83.0 fL (83.0-100.0) 03/17/18 05:24 MCH 28.1 pg (28.0-33.3) 03/17/18 05:24 MCHC 33.9 g/dL (31.6-35.5) 03/17/18 05:24 RDW 15.9 % (11.5-14.5) H 03/17/18 05:24 Plt Count 161 K/mcL (140-400) 03/17/18 05:24 MPV 9.9 fL (9.4-12.4) 03/17/18 05:24 Immature Gran % 0.5 % (0-4) 03/17/18 05:24 Seg Neutrophils % 59.1 % 03/17/18 05:24 Lymphocytes % 30.8 % 03/17/18 05:24 Monocytes % 7.3 % 03/17/18 05:24 Eosinophils % 1.4 % 03/17/18 05:24 Basophils % 0.9 % 03/17/18 05:24 Neutrophils # 2.5 K/mcL (1.6-8.9) 03/17/18 05:24 Lymphocytes # 1.3 K/mcL (0.6-4.6) 03/17/18 05:24 Monocytes # 0.3 K/mcL (0.0-1.3) 03/17/18 05:24 Eosinophils # 0.1 K/mcL (0.0-0.6) 03/17/18 05:24 Basophils # 0.0 K/mcL (0.0-0.2) 03/17/18 05:24 Sodium 136 mEq/L (136-145) 03/17/18 05:24 Potassium 3.2 mEq/L (3.5-5.1) L 03/17/18 05:24 Chloride 100 mEq/L (98-107) 03/17/18 05:24 Carbon Dioxide 23 mEq/L (23-29) 03/17/18 05:24 BUN 6 mg/dL (6-20) 03/17/18 05:24 Creatinine 0.61 mg/dL (0.60-1.20) 03/17/18 05:24 Est GFR ( Amer) > 60 (> 60) 03/17/18 05:24 Est GFR (Non-Af Amer) > 60 (> 60) 03/17/18 05:24 BUN/Creatinine Ratio 10 (6-26) 03/17/18 05:24 Glucose 74 mg/dL (70-105) 03/17/18 05:24 Calculated Osmolality 278 (280-300) L 03/17/18 05:24 Calcium 8.4 mg/dL (8.6-10.3) L 03/17/18 05:24 Magnesium 1.8 mg/dL (1.6-2.6) 03/17/18 05:24 Urine Color Yellow (Yellow) 03/16/18 19:10 Urine Clarity Clear (Clear) 03/16/18 19:10 Urine pH 6.5 pH Units (5.0-8.0) 03/16/18 19:10 Ur Specific [place] 1.013 (1.010-1.025) 03/16/18 19:10 Urine Protein 30 mg/dL (Neg-Trace) H 03/16/18 19:10 Urine Glucose (UA) Normal mg/dL (Normal) 03/16/18 19:10 Urine Ketones Trace mg/dL (Negative) H 03/16/18 19:10 Urine Blood Small (Negative) H 03/16/18 19:10 Urine Nitrite Negative (Negative) 03/16/18 19:10 Urine Bilirubin Negative (Negative) 03/16/18 19:10 Urine Urobilinogen Normal mg/dL (Normal) 03/16/18 19:10 Ur Leukocyte Esterase Negative (Negative) 03/16/18 19:10 Urine Microscopic RBC 0-3 per hpf (0-3) 03/16/18 19:10 Urine Microscopic WBC 0-3 per hpf (0-3) 03/16/18 19:10 Ur Squamous Epith Cells Moderate per lpf (None-Few) H 03/16/18 19:10 Urine Bacteria None Seen per hpf (None-Few) 03/16/18 19:10 Hyaline Casts None Seen per lpf (None-Few) 03/16/18 19:10 Urine Test Negative (Negative) 03/16/18 19:10 Salicylates < 2.5 mg/dL (15.0-30.0) L 03/16/18 19:13 Urine Opiates Screen Negative ng/mL (Wwcubx=961) 03/16/18 19:10 Acetaminophen < 10 mcg/mL (10-20) L 03/16/18 19:13 Ur Barbiturates Screen Negative ng/mL (Eewfrs=572) 03/16/18 19:10 Ur Phencyclidine Scrn Negative ng/mL (Cutoff=25) 03/16/18 19:10 Ur Amphetamines Screen Negative ng/mL (Bahtvp=3947) 03/16/18 19:10 U Benzodiazepines Scrn Negative ng/mL (Asmuks=119) 03/16/18 19:10 Urine Cocaine Screen Negative ng/mL (Cutoff= 300) 03/16/18 19:10 U Marijuana (THC) Screen Negative ng/mL (Cutoff = 50) 03/16/18 19:10 Ethyl Alcohol 430 mg/dL (Less than 10) H 03/16/18 19:13 Consult Discharge Plan - Plan Referrals: NONE,PCP [Primary Care Provider] -
[2018-03-17] MEDS ORDERED: Thiamine (B-1) 100 MG, Folic Acid 1 MG, MVI, adult with vitamin K 10 ML in 0.9 % Sodi... IVPB SCH (18:00)
[2018-03-18 04:26] LABS: BUN/Creatinine Ratio 16 (6-26); Blood Urea Nitrogen 9 mg/dL (6-20); Calcium 9.1 mg/dL (8.6-10.3); Carbon Dioxide 22 mEq/L (23-29); Chloride 99 mEq/L (98-107); Glucose 75 mg/dL (70-105); Osmolality,Calculated 273 (280-300); Potassium 3.5 mEq/L (3.5-5.1); Sodium 133 mEq/L (136-145); eGFR For African Americans > 60 (> 60); eGFR For Non-African Americans > 60 (> 60)
[2018-03-18] MEDS: *HR* Heparin 5,000 UNIT/ML VIAL SQ SCH (05:34)
--- NOTE | 2018-03-18 12:00 | Discharge Summary ---
Date of Encounter: 03/18/18 - Discharge Diagnosis (1) Suicidal ideation Status: Acute (2) Alcohol withdrawal Status: Acute Qualifiers: Complication of substance-induced condition: uncomplicated Qualified Code(s ): F10.230 - Alcohol dependence with withdrawal, uncomplicated (3) Alcoholism Status: Acute (4) Depression Status: Acute Qualifiers: Depression Type: unspecified Qualified Code(s): F32.9 - Major depressive disorder, single episode, unspecified (5) Anxiety Status: Acute (6) DVT prophylaxis Status: Acute Hospital course: Ms. Walker is a 47 year old female - Time Spent with Patient Total time spent providing and/or coordinating discharge services: - Discharge Medications Home Medications: No Known Home Drugs 03/16/18 [History] Allergies/Adverse Reactions: 3 Allergy/AdvReac Type Severity Reaction Status Date / Time No Known Allergies Allergy Verified 03/16/18 21:42 Date of admission: 03/16/18 23:08 Primary care physician: PCP NONE Consults: 03/16/18 23:11 Consult to Medical Delivery Driver [CONS] Routine Reason for SW Consult: Alcoholism 03/16/18 23:13 Consult to Psychiatry [CONS] Routine Consulting Provider: Psychiatry [place] Reason for Consult: SI Call Completed: No - Constitutional Vitals: Temp Pulse Resp BP Pulse Ox 98.1 F 100 16 151/93 100 03/18/18 11:35 03/18/18 11:35 03/18/18 11:35 03/18/18 11:35 03/18/18 11:35 General appearance: Present: A&O X 3, no acute distress, answers questions appropriately - Patient Status Condition: Good - Discharge Instructions Follow Up With: Cathleen Felix [Non-Partnered Physician] - 03/31/18 11:00 am NONE,PCP [Primary Care Provider] - Forms: Inpatient Work/School Release
[2018-03-18 12:43] VITALS: BP 135/85
--- NOTE | 2018-03-18 12:53 | Discharge Summary ---
- NOTES TO OUTPATIENT PROVIDER Notes to Outpatient Provider: To follow-up outpatient psychiatry in [facility] with Dr. Kelly Felix. To follow-up with PCP regarding work absences secondary to alcoholism paperwork. To investigate outpatient rehabilitation facilities. Recommend Alcoholics Anonymous meetings and sponsorship Date of Encounter: 03/18/18 Time of Encounter: 12:28 - Discharge Diagnosis (1) Suicidal ideation Priority: Secondary Status: Resolved (2) Alcohol withdrawal Priority: Primary Status: Acute Qualifiers: Complication of substance-induced condition: uncomplicated Qualified Code(s ): F10.230 - Alcohol dependence with withdrawal, uncomplicated (3) Alcoholism Priority: Primary Status: Chronic (4) Depression Priority: Primary Status: Chronic Qualifiers: Depression Type: unspecified Qualified Code(s): F32.9 - Major depressive disorder, single episode, unspecified (5) Anxiety Priority: Primary Status: Chronic (6) DVT prophylaxis Priority: Primary Status: Chronic Hospital course: Ms. Walker is a 47 year old female who presented to the ER for suicidal ideation with a past medical history significant for depression. She denied homicide ideas. She was anxious and reported palpitations shaking and sweats. She had no chest pain shortness of breath abdominal pain nausea or vomiting. She has been drinking daily with her last strict morning of admission. She has a history of previous psychiatric hospitalizations as well as a alcoholic rehabilitation stent. Psychiatric service saw the patient. Recommended outpatient psychiatric follow-up as well as outpatient alcohol rehabilitation. Patient discharged on naltrexone daily as well as a Librium taper over 3 days. This was discussed with the psychiatrist. He felt her depression would be best treated as an outpatient without being on antidepressants. Spoke at great length with the patient and her father regarding commitment to stopping alcohol is more than just medications are going to rehabilitation at a lifelong change. She verbalized understanding. Answered all their questions. Also recommended following up with AA and obtaining a sponsor. She was receptive to that idea as well. Discharged in a stable condition. Discharge discussed with: patient, family, nurse, social work, service delivery consultant - Time Spent with Patient Total time spent providing and/or coordinating discharge services: Less than 30 minutes - Discharge Medications Prescriptions: Chlordiazepoxide [Librium] 5 mg PO QID 3 Days #24 capsule Naltrexone HCl 50 mg PO HS #30 tablet Home Medications: Chlordiazepoxide [Librium] 5 mg PO QID 3 Days #24 capsule 03/18/18 [Rx] Naltrexone HCl 50 mg PO HS #30 tablet 03/18/18 [Rx] Allergies/Adverse Reactions: 3 Allergy/AdvReac Type Severity Reaction Status Date / Time No Known Allergies Allergy Verified 03/16/18 21:42 Date of admission: 03/16/18 23:08 Primary care physician: PCP NONE Consults: 03/16/18 23:11 Consult to Supervisor [facility] [CONS] Routine Reason for SW Consult: Alcoholism 03/16/18 23:13 Consult to Psychiatry [CONS] Routine Consulting Provider: Psychiat[facility] [place] Reason for Consult: SI Call Completed: No Discharging clinician: Kourtney Gresham Anticipated date of discharge: 03/18/18 - Constitutional Vitals: Temp Pulse Resp BP Pulse Ox 98.1 F 100 16 151/93 100 03/18/18 11:35 03/18/18 11:35 03/18/18 11:35 03/18/18 11:35 03/18/18 11:35 General appearance: Present: cooperative, A&O X 3, pleasant, no acute distress, answers questions appropriately - Head Head exam: Present: atraumatic, normocephalic - Eye Eye exam: Present: PERRL, conjuntiva pink, sclera anicteric Pupils: Present: PERRL - Neck Neck exam general surgery: Present: supple, trachea midline. Absent: lymphadenopathy - Respiratory Respiratory exam: Present: CTAB. Absent: accessory muscle use, rales, rhonchi, wheezes - Cardiovascular Cardiovascular exam: Present: RRR, +S1, +S2. Absent: diastolic murmur, gallop, rubs, systolic murmur, tachycardia - GI/Abdominal GI/Abdominal exam: Present: normal bowel sounds, soft, no peritoneal signs. Absent: distended, tenderness - Extremities Exam Extremities exam: Present: warm, radial pulses palpable and symmetrical. Absent : calf tenderness, cyanotic, pedal edema - Neurological Exam Neurological exam: Present: alert, CN II-XII intact, normal gait, oriented X3, no focal deficits. Absent: pronater drift, facial droop, speech deficit - Skin Skin exam: Present: dry, intact, normal color, warm - Patient Status Disposition: Home, Self-Care Condition: Good Functional capacity at discharge: independent ambulation Overall status at discharge: patient is progressing back to baseline - Discharge Instructions Instructions: Chlordiazepoxide (By mouth), Naltrexone (By mouth), Alcohol Withdrawal (DC), Suicide Prevention for Adults (DC) Follow Up With: Cathleen Felix [Non-Partnered Physician] - 03/31/18 11:00 am Forms: Inpatient Work/School Release - Diet and Activity Activity: resume usual activities as tolerated
== END 2018-03-18 13:44 | disposition home or self-care (01) | DRG 897 ==
LOC: EMEROO 17:36 → 3BNU 17:36
PROVIDERS: ADMIT Pediatrics; ATTEND Registered Nurse